=== PATIENT | female | born 1935 | race Caucasian/White ===

== ENCOUNTER 2017-05-06 12:03 | Emergency (ER) | payer OTHER | END 2017-05-06 14:33 | disposition left against medical advice (07) | LOC: E/R 14:33 | DX: Z53.21 Procedure and treatment not carried out due to patient leaving prior to being seen by health care provider (principal) ==

== ENCOUNTER 2017-09-25 17:03 | Observation (INO) | payer OTHER ==
[2017-09-25 19:44] LABS: ADD MAN DIFF? NO
[2017-09-25 19:47] LABS: ABNORMAL IP MESSAGE 1; BASOPHILS % 0.2 % (0.0-2.0); HEMATOCRIT 33.6 % (37.0-47.0); HEMOGLOBIN 10.7 g/dl (12.0-16.0); LYMPHOCYTES # 0.6 10^3/ul (0.8-2.9); LYMPHOCYTES % 11.5 % (15.0-51.0); MEAN CORPUSCULAR HGB CONC 31.8 g/dl (32.0-37.0); MEAN CORPUSCULAR VOLUME 91.1 fl (82.0-101.0); MEAN PLATELET VOLUME 10.5 fl (7.4-10.4); MONOCYTE # 0.2 10^3/ul (0.3-0.9); MONOCYTES % 4.6 % (0.0-11.0); NEUTROPHILS % 83.3 % (39.0-77.0); PLATELET COUNT 165 10^3/UL (140-415); RED BLOOD COUNT 3.69 10^6/ul (4.20-5.40); RED CELL DISTRIBUTION WIDTH 17.5 % (11.5-14.5)
[2017-09-25 19:47] LABS: WHITE BLOOD COUNT 4.8 10^3/ul (4.8-10.8)
[2017-09-25 19:56] LABS: POSITIVE DIFF @See below
[2017-09-25 20:03] LABS: INR 0.93; PROTIME 12.6 Sec (11.9-14.9)
[2017-09-25 20:11] LABS: ANION GAP 14 (8-16)
[2017-09-25 20:12] LABS: BLOOD UREA NITROGEN 26 mg/dl (7-20); CALCIUM 8.7 mg/dl (8.4-10.2); CARBON DIOXIDE 29 mmol/L (21-31); CHLORIDE 102 mmol/L (97-110); CREATININE 1.21 mg/dl (0.44-1.00); GLUCOSE 112 mg/dl (70-220); POTASSIUM 4.5 mmol/L (3.5-5.1); SODIUM 140 mmol/L (135-144)
[2017-09-25 20:24] LABS: B-TYPE NATRIURETIC PEPTIDE 538 PG/ML (0-450); TROPONIN-I < 0.012 ng/ml (0.000-0.120)
[2017-09-25 22:50] LABS: FREE T4 (FREE THYROXINE) 1.09 ng/dl (0.85-1.93)
[2017-09-26] MEDS ORDERED: ACETAMINOPHEN 325 MG TAB PO ×2 (00:30→04:00)
[2017-09-26] MEDS ORDERED: ONDANSETRON 4 MG INJ IV ×2 (00:30→04:00)
[2017-09-26] MEDS: SOD CHLORIDE 0.9% 1,000 ML IV (00:55)
[2017-09-26 07:13] LABS: ADD MAN DIFF? NO
[2017-09-26 07:17] LABS: BASOPHILS % 0.4 % (0.0-2.0); EOSINOPHILS # 0.1 10^3/ul (0.0-0.5); EOSINOPHILS % 2.9 % (0.0-7.0); HEMATOCRIT 33.8 % (37.0-47.0); HEMOGLOBIN 10.6 g/dl (12.0-16.0); LYMPHOCYTES # 1.2 10^3/ul (0.8-2.9); LYMPHOCYTES % 26.1 % (15.0-51.0); MEAN CORPUSCULAR HGB CONC 31.4 g/dl (32.0-37.0); MEAN CORPUSCULAR VOLUME 92.3 fl (82.0-101.0); MEAN PLATELET VOLUME 10.9 fl (7.4-10.4); MONOCYTE # 0.5 10^3/ul (0.3-0.9); MONOCYTES % 11.6 % (0.0-11.0); NEUTROPHIL # 2.6 10^3/ul (1.6-7.5); NEUTROPHILS % 58.8 % (39.0-77.0); PLATELET COUNT 171 10^3/UL (140-415); RED BLOOD COUNT 3.66 10^6/ul (4.20-5.40); RED CELL DISTRIBUTION WIDTH 17.8 % (11.5-14.5)
[2017-09-26 07:17] LABS: WHITE BLOOD COUNT 4.5 10^3/ul (4.8-10.8)
[2017-09-26 07:42] LABS: HEMOGLOBIN A1C 5.7 % (0-5.9)
[2017-09-26 08:00] LABS: ALANINE AMINOTRANSFERASE 21 IU/L (13-69); ALBUMIN 3.6 g/dl (3.3-4.9); ALKALINE PHOSPHATASE 62 IU/L (42-121); ANION GAP 15 (8-16); ASPARTATE AMINO TRANSFERASE 34 IU/L (15-46); BILIRUBIN,INDIRECT 0.5 mg/dl (0-1.1); BILIRUBIN,TOTAL 0.5 mg/dl (0.2-1.3); BLOOD UREA NITROGEN 29 mg/dl (7-20); CALCIUM 8.4 mg/dl (8.4-10.2); CARBON DIOXIDE 30 mmol/L (21-31); CHLORIDE 101 mmol/L (97-110); CHOL/HDL RATIO 2.8 RATIO; CHOLESTEROL 174 mg/dl (100-200); CREATININE 1.08 mg/dl (0.44-1.00); GLUCOSE 88 mg/dl (70-220); HDL CHOLESTEROL 61 mg/dl (33-92); LDL CHOLESTEROL,CALCULATED 91 mg/dl; PHOSPHORUS 4.3 mg/dl (2.5-4.9); SODIUM 142 mmol/L (135-144); TOTAL PROTEIN 7.2 g/dl (6.1-8.1); TRIGLYCERIDES 108 mg/dl (0-149)
[2017-09-26 08:03] LABS: TROPONIN-I < 0.012 ng/ml (0.000-0.120)
[2017-09-26] MEDS: FUROSEMIDE 20 MG TAB PO ×2 (09:48→17:25)
[2017-09-26] MEDS: METOPROLOL 25 MG TAB PO (09:48)
[2017-09-26 12:11] LABS: TROPONIN-I < 0.012 ng/ml (0.000-0.120)
[2017-09-26] MEDS: ASPIRIN (EC) 325 MG TAB PO (16:25)
[2017-09-26] MEDS: SOD CHLORIDE 0.45% 1,000 ML IV (16:27)
[2017-09-26] MEDS: ENOXAPARIN 30 MG/0.3 ML SYG SC (16:41)
[2017-09-27] MEDS: FUROSEMIDE 20 MG TAB PO ×2 (06:29→17:49)
[2017-09-27 07:20] LABS: ADD MAN DIFF? NO
[2017-09-27 07:28] LABS: WHITE BLOOD COUNT 3.9 10^3/ul (4.8-10.8)
[2017-09-27 07:28] LABS: BASOPHILS % 0.5 % (0.0-2.0); EOSINOPHILS # 0.2 10^3/ul (0.0-0.5); EOSINOPHILS % 4.1 % (0.0-7.0); LYMPHOCYTES # 1.1 10^3/ul (0.8-2.9); LYMPHOCYTES % 27.7 % (15.0-51.0); MEAN CORPUSCULAR HEMOGLOBIN 29.2 pg (29.0-33.0); MEAN CORPUSCULAR HGB CONC 32.4 g/dl (32.0-37.0); MEAN CORPUSCULAR VOLUME 90.2 fl (82.0-101.0); MEAN PLATELET VOLUME 11.1 fl (7.4-10.4); MONOCYTE # 0.4 10^3/ul (0.3-0.9); MONOCYTES % 9.4 % (0.0-11.0); NEUTROPHIL # 2.3 10^3/ul (1.6-7.5); NEUTROPHILS % 57.8 % (39.0-77.0); PLATELET COUNT 163 10^3/UL (140-415); RED BLOOD COUNT 3.77 10^6/ul (4.20-5.40); RED CELL DISTRIBUTION WIDTH 17.6 % (11.5-14.5)
[2017-09-27 07:53] LABS: ANION GAP 15 (8-16); BLOOD UREA NITROGEN 26 mg/dl (7-20); CALCIUM 8.1 mg/dl (8.4-10.2); CARBON DIOXIDE 29 mmol/L (21-31); CHLORIDE 101 mmol/L (97-110); CREATININE 1.28 mg/dl (0.44-1.00); GLUCOSE 85 mg/dl (70-220); POTASSIUM 3.5 mmol/L (3.5-5.1); SODIUM 141 mmol/L (135-144)
[2017-09-27] MEDS: ASPIRIN (EC) 325 MG TAB PO (09:13)
[2017-09-27] MEDS: METOPROLOL 25 MG TAB PO (09:13)
[2017-09-27] MEDS: ENOXAPARIN 30 MG/0.3 ML SYG SC (09:15)
== END 2017-09-27 18:38 | disposition home health service (06) ==
LOC: E/R 17:03 → MS4 09-26 00:28
PROVIDERS: Internal Medicine
DX: R55 Syncope and collapse (principal); I10 Essential (primary) hypertension; I48.91 Unspecified atrial fibrillation; Z79.01 Long term (current) use of anticoagulants; I34.0 Nonrheumatic mitral (valve) insufficiency; I07.1 Rheumatic tricuspid insufficiency; Z88.0 Allergy status to penicillin; Z88.2 Allergy status to sulfonamides; Z87.891 Personal history of nicotine dependence
CPT/HCPCS: 36415; 70450; 71045; 72170; 73510; 80048; 80053; 80061; 82962; 83036; 83735; 83880; 84100; 84439; 84443; 84484; 85025; 85610; 93005; 93306; 93880; 93971; 97161; 99285-25; G0378